=== PATIENT | male | born 1970 | race Caucasian/White ===

== ENCOUNTER 2019-06-17 14:36 | Emergency (ER) | payer OTHER ==
[2019-06-17 14:41] VITALS: TEMP 98.1
[2019-06-17] MEDS ORDERED: SODIUM CHLORIDE 0.9% 1,000 ML IV STA (14:43)
[2019-06-17 15:08] VITALS: RESP 16
[2019-06-17 15:10] LABS: Basophils # (A) 0.1 k/uL (0-0.2); Basophils % (A) 1 %; Eosinophils # (A) 0.1 k/uL (0-0.7); Eosinophils % (A) 1 %; HCT 45.8 % (39.0-53.0); HGB 15.6 gm/dL (13.0-17.5); Lymphocytes # (A) 2.4 k/uL (1.0-4.8); Lymphocytes % (A) 25 %; MCH 30.9 pg (25.0-35.0); Mean Platelet Volume 7.1; Monocytes # (A) 0.6 k/uL (0-1.0); Monocytes % (A) 6 %; Neutrophils # (A) 6.2 k/uL (1.3-7.7); Neutrophils % (A) 65 %; Platelet Count 276 k/uL (150-450); RBC 5.04 m/uL (4.30-5.90); RDW 14.7 % (11.5-15.5); WBC 9.6 k/uL (3.8-10.6)
[2019-06-17 15:20] LABS: ALT 48 U/L (21-72); AST 36 U/L (17-59); African American GFR (CKD) >90 (>60 ml/min/1.73 sqM); Albumin 4.6 g/dL (3.5-5.0); Alkaline Phosphatase 78 U/L (38-126); Anion Gap 13 mmol/L; Blood Urea Nitrogen 12 mg/dL (9-20); Calcium 10.1 mg/dL (8.4-10.2); Carbon Dioxide 24 mmol/L (22-30); Chloride 102 mmol/L (98-107); Glucose 189 mg/dL (74-99); Magnesium 1.9 mg/dL (1.6-2.3); Potassium 4.2 mmol/L (3.5-5.1); Sodium 139 mmol/L (137-145); Total Bilirubin 0.5 mg/dL (0.2-1.3); Total Protein 7.5 g/dL (6.3-8.2)
--- NOTE | 2019-06-17 15:34 | ED ---
General Adult HPI - General Chief complaint: Dizziness Stated complaint: Poss Overdose Time Seen by Provider: 06/17/19 14:43 Source: patient, RN notes reviewed Mode of arrival: wheelchair Limitations: no limitations - History of Present Illness Initial comments: 48-year-old male presents emergency Department with son for medication ingestion. Patient reportedly has been over taking his medications in which he states that he did over take them because he could not sleep. He states last 24-36 hours he did have increased muscle spasms in which she normally takes Flexeril for 1 tab nightly states that he's been taking 2-3 of them and also states he normally takes one Ambien pill night but states he is taken 5 or 6 last 2 days. His last pill was approximately 2 hours prior arrival. He states that he feels very drowsy since states that he is acting kind of confused at this time but has no focal deficits. Patient states that this was intentional to help him sleep but was not intentional to harm himself he denies feeling suicidal or homicidal. He denies any history of drug abuse. Patient's son states that there is a large amount of stress in the household and he has been recently going to therapy. Patient denies any current chest pain, thoracic back pain, headache, dizziness, neck pain. Patient has no complaints of abdominal pain including nausea and diarrhea constipation - Related Data Home Medications Medication Instructions Recorded Confirmed Cyclobenzaprine [Flexeril] 10 mg PO HS 06/17/19 06/17/19 Omeprazole [PriLOSEC] 40 mg PO DAILY 06/17/19 06/17/19 Zolpidem [Ambien] 10 mg PO HS 06/17/19 06/17/19 Allergies Allergy/AdvReac Type Severity Reaction Status Date / Time azithromycin Allergy Rash/Hives Verified 06/17/19 15:25 [From Zithromax Z-Gato] Review of Systems ROS Statement: Those systems with pertinent positive or pertinent negative responses have been documented in the HPI. ROS Other: All systems not noted in ROS Statement are negative. Past Medical History Past Medical History: Pneumonia, Sleep Apnea/CPAP/BIPAP Additional Past Medical History / Comment(s): JOSEY with bipap, sinus problems, bronchitis-just got over, History of Any Multi-Drug Resistant Organisms: None Reported Additional Past Surgical History / Comment(s): right foot fracture with surgery Past Anesthesia/Blood Transfusion Reactions: No Reported Reaction Past Psychological History: ADD/ADHD Smoking Status: Never smoker Past Alcohol Use History: None Reported Past Drug Use History: None Reported - Past Family History Father Family Medical History: No Reported History Additional Family Medical History / Comment(s): Father is healthy and almost 70 yrs old. Mother Family Medical History: CVA/TIA Additional Family Medical History / Comment(s): Mother of a CVA at the age of 45yrs. General Exam Limitations: no limitations General appearance: alert, in no apparent distress Head exam: Present: atraumatic, normocephalic, normal inspection Eye exam: Present: normal appearance, PERRL, EOMI. Absent: scleral icterus, conjunctival injection, periorbital swelling ENT exam: Present: normal exam, normal oropharynx, mucous membranes moist, TM's normal bilaterally Neck exam: Present: normal inspection, full ROM. Absent: tenderness, meningismus, lymphadenopathy Respiratory exam: Present: normal lung sounds bilaterally. Absent: respiratory distress, wheezes, rales, rhonchi, stridor Cardiovascular Exam: Present: normal rhythm, tachycardia, normal heart sounds. Absent: systolic murmur, diastolic murmur, rubs, gallop, clicks GI/Abdominal exam: Present: soft, normal bowel sounds. Absent: distended, tenderness, guarding, rebound, rigid Extremities exam: Present: normal inspection, full ROM, normal capillary refill. Absent: tenderness, pedal edema, joint swelling, calf tenderness Back exam: Present: full ROM. Absent: tenderness Neurological exam: Present: alert, CN II-XII intact, reflexes normal. Absent: oriented X3 (Orientated x2 ), motor sensory deficit Skin exam: Present: warm, dry, intact, normal color. Absent: rash Course Vital Signs 06/17/19 06/17/19 06/17/19 14:38 15:07 17:08 Temperature 98.1 F Pulse Rate 107 H 112 H 96 Respiratory 18 16 16 Rate Blood Pressure 162/87 150/102 141/130 O2 Sat by Pulse 95 99 99 Oximetry EKG Findings - EKG Comments: EKG Findings:: 1553 normal sinus rhythm rate of 93 [place] 134 QRS 150 QT/QTC 460right bundle to the left anterior fascicular block Medical Decision Making - Medical Decision Making 48-year-old male presented for medication overuse. Patient's having difficulty sleeping at home was ordered using his medications. Patient had complete workup which is negative at this time. Patient was evaluated by EPS. They did not recommend inpatient treatment. Patient we discharged with family who LOC patient's medications. Patient is not suicidal or homicidal. - Lab Data Result diagrams: 06/17/19 14:55 06/17/19 14:55 Lab Results 06/17/19 06/17/19 06/17/19 Range/Units 14:55 14:55 14:55 WBC 9.6 (3.8-10.6) k/uL RBC 5.04 (4.30-5.90) m/uL Hgb 15.6 (13.0-17.5) gm/dL Hct 45.8 (39.0-53.0) % MCV 91.0 (80.0-100.0) fL MCH 30.9 (25.0-35.0) pg MCHC 34.0 (31.0-37.0) g/dL RDW 14.7 (11.5-15.5) % Plt Count 276 (150-450) k/uL Neutrophils % 65 % Lymphocytes % 25 % Monocytes % 6 % Eosinophils % 1 % Basophils % 1 % Neutrophils # 6.2 (1.3-7.7) k/uL Lymphocytes # 2.4 (1.0-4.8) k/uL Monocytes # 0.6 (0-1.0) k/uL Eosinophils # 0.1 (0-0.7) k/uL Basophils # 0.1 (0-0.2) k/uL Sodium 139 (137-145) mmol/L Potassium 4.2 (3.5-5.1) mmol/L Chloride 102 (98-107) mmol/L Carbon Dioxide 24 (22-30) mmol/L Anion Gap 13 mmol/L BUN 12 (9-20) mg/dL Creatinine 0.68 (0.66-1.25) mg/dL Est GFR (CKD-EPI)AfAm >90 (>60 ml/min/1.73 sqM) Est GFR (CKD-EPI)NonAf >90 (>60 ml/min/1.73 sqM) Glucose 189 H (74-99) mg/dL Calcium 10.1 (8.4-10.2) mg/dL Magnesium 1.9 (1.6-2.3) mg/dL Total Bilirubin 0.5 (0.2-1.3) mg/dL AST 36 (17-59) U/L ALT 48 (21-72) U/L Alkaline Phosphatase 78 (38-126) U/L Troponin I <0.012 (0.000-0.034) ng/mL Total Protein 7.5 (6.3-8.2) g/dL Albumin 4.6 (3.5-5.0) g/dL Lipase 75 (23-300) U/L Urine Color Urine Appearance (Clear) Urine pH (5.0-8.0) Ur Specific [place] (1.001-1.035) Urine Protein (Negative) Urine Glucose (UA) (Negative) Urine Ketones (Negative) Urine Blood (Negative) Urine Nitrite (Negative) Urine Bilirubin (Negative) Urine Urobilinogen (<2.0) mg/dL Ur Leukocyte Esterase (Negative) Urine Opiates Screen (NotDetected) Ur Oxycodone Screen (NotDetected) Urine Methadone Screen (NotDetected) Ur Propoxyphene Screen (NotDetected) Ur Barbiturates Screen (NotDetected) U Tricyclic Antidepress (NotDetected) Ur Phencyclidine Scrn (NotDetected) Ur Amphetamines Screen (NotDetected) U Methamphetamines Scrn (NotDetected) U Benzodiazepines Scrn (NotDetected) Urine Cocaine Screen (NotDetected) U Marijuana (THC) Screen (NotDetected) 06/17/19 Range/Units 16:25 WBC (3.8-10.6) k/uL RBC (4.30-5.90) m/uL Hgb (13.0-17.5) gm/dL Hct (39.0-53.0) % MCV (80.0-100.0) fL MCH (25.0-35.0) pg MCHC (31.0-37.0) g/dL RDW (11.5-15.5) % Plt Count (150-450) k/uL Neutrophils % % Lymphocytes % % Monocytes % % Eosinophils % % Basophils % % Neutrophils # (1.3-7.7) k/uL Lymphocytes # (1.0-4.8) k/uL Monocytes # (0-1.0) k/uL Eosinophils # (0-0.7) k/uL Basophils # (0-0.2) k/uL Sodium (137-145) mmol/L Potassium (3.5-5.1) mmol/L Chloride (98-107) mmol/L Carbon Dioxide (22-30) mmol/L Anion Gap mmol/L BUN (9-20) mg/dL Creatinine (0.66-1.25) mg/dL Est GFR (CKD-EPI)AfAm (>60 ml/min/1.73 sqM) Est GFR (CKD-EPI)NonAf (>60 ml/min/1.73 sqM) Glucose (74-99) mg/dL Calcium (8.4-10.2) mg/dL Magnesium (1.6-2.3) mg/dL Total Bilirubin (0.2-1.3) mg/dL AST (17-59) U/L ALT (21-72) U/L Alkaline Phosphatase (38-126) U/L Troponin I (0.000-0.034) ng/mL Total Protein (6.3-8.2) g/dL Albumin (3.5-5.0) g/dL Lipase (23-300) U/L Urine Color Light Yellow Urine Appearance Clear (Clear) Urine pH 6.5 (5.0-8.0) Ur Specific [place] 1.003 (1.001-1.035) Urine Protein Negative (Negative) Urine Glucose (UA) Negative (Negative) Urine Ketones Negative (Negative) Urine Blood Negative (Negative) Urine Nitrite Negative (Negative) Urine Bilirubin Negative (Negative) Urine Urobilinogen <2.0 (<2.0) mg/dL Ur Leukocyte Esterase Negative (Negative) Urine Opiates Screen Not Detected (NotDetected) Ur Oxycodone Screen Not Detected (NotDetected) Urine Methadone Screen Not Detected (NotDetected) Ur Propoxyphene Screen Not Detected (NotDetected) Ur Barbiturates Screen Not Detected (NotDetected) U Tricyclic Antidepress Not Detected (NotDetected) Ur Phencyclidine Scrn Not Detected (NotDetected) Ur Amphetamines Screen Not Detected (NotDetected) U Methamphetamines Scrn Not Detected (NotDetected) U Benzodiazepines Scrn Not Detected (NotDetected) Urine Cocaine Screen Not Detected (NotDetected) U Marijuana (THC) Screen Not Detected (NotDetected) Disposition Clinical Impression: Overuse of medication, Insomnia Disposition: HOME SELF-CARE Condition: Stable Instructions (If sedation given, give patient instructions): Insomnia (ED) Additional Instructions: Please return to the Emergency Department if symptoms worsen or any other concerns. Is patient prescribed a controlled substance at d/c from ED?: No Referrals: Kiersten Bernard DO [Primary Care Provider] - 1-2 days Time of Disposition: 19:04
--- NOTE | 2019-06-17 16:28 | CT ---
EXAMINATION TYPE: CT brain wo con DATE OF EXAM: 06/17/2019 COMPARISON: 07/10/2016 HISTORY: 48-year-old male Dizziness and weakness after accidental overdose. TECHNIQUE: Examination was done in axial plane without intravenous contrast. Coronal and sagittal r econstructions performed. CT DLP: 1149.4 mGycm Automated exposure control for dose reduction was used. FINDINGS: There is no evidence of acute intracranial hemorrhage, acute ischemic changes, mass, mass-effect, or extra-axial fluid collection. There is no effacement of cerebral sulci or basal subarachnoid cister ns. There is no hydrocephalus. There is no midline shift. Jose-white matter distinction is preserv ed. Mild bifrontal cortical volume loss. Partially empty sella. There is trace mucosal thickening ethmoid air cells. Mastoid air cells are pneumatized. Orbits and globes appear intact. IMPRESSION: No acute intracranial abnormality seen.
[2019-06-17 16:41] LABS: Appearance,Urine Clear (Clear); Bilirubin,Urine Negative (Negative); Blood,Urine Negative (Negative); Color,Urine Light Yellow; Glucose,Urine (UA) Negative (Negative); Ketones,Urine Negative (Negative); Leukocyte Esterase,Urine Negative (Negative); Nitrite,Urine Negative (Negative); PH, Urine 6.5 (5.0-8.0); Protein,Urine Negative (Negative); Specific Gravity,Urine 1.003 (1.001-1.035); Urobilinogen,Urine <2.0 mg/dL (<2.0)
[2019-06-17 16:52] LABS: Amphetamine Screen,Urine Not Detected (NotDetected); Barbiturate Screen,Urine Not Detected (NotDetected); Benzodiazepines Screen,Urine Not Detected (NotDetected); Cocaine Screen,Urine Not Detected (NotDetected); Methadone Screen, Urine Not Detected (NotDetected); Opiate Screen,Urine Not Detected (NotDetected); Oxycodone Screen, Urine Not Detected (NotDetected); Phencyclidine Screen,Urine Not Detected (NotDetected); Tricyclic Antidepressant,Urine Not Detected (NotDetected); Urn Cannabinoid Scrn Not Detected (NotDetected)
[2019-06-17 19:18] VITALS: BP 141/98; PULSE 98
== END 2019-06-17 19:07 | disposition home or self-care (01) ==
LOC: EC 14:36
DX: T42.6X1A Poisoning by other antiepileptic and sedative-hypnotic drugs, accidental (unintentional), initial encounter (principal); R42 Dizziness and giddiness; G47.00 Insomnia, unspecified; G47.33 Obstructive sleep apnea (adult) (pediatric); Z79.899 Other long term (current) drug therapy; Z88.1 Allergy status to other antibiotic agents; Z99.89 Dependence on other enabling machines and devices
CPT/HCPCS: 36415; 70450; 80053; 80306; 81003; 82075; 83690; 83735; 84484; 85025; 93005; 96360; 99284

== ENCOUNTER 2020-12-21 08:15 | Day surgery (SDC) | payer BC ==
[2020-12-15 14:57] VITALS: BMI 51.2
[~2020-12-21 08:15] MED LIST: LACTATED RINGERS 1,000 ML IV SCH; LIDOCAINE 1% (10MG/ML) FOR IV START INTRADERMA PRN
[2020-12-21 08:51] VITALS: RESP 16; TEMP 97
[2020-12-21] MEDS ORDERED: LIDOCAINE 1% INJ 10MG/ML (20 ML MDV) ONE (08:55)
[2020-12-21] MEDS ORDERED: PROPOFOL 10 MG/ML 20 ML VIAL IV ONE (08:55)
--- NOTE | 2020-12-21 08:59 | P.GSHP ---
History of Present Illness H&P Date: 12/21/20 Chief Complaint: Colon cancer screening Patient here today for colonoscopy. He has not had 1 previously. Patient with history of multiple loose stools daily that is normal for him. No rectal bleeding or melena. No family history of colon cancer or inflammatory bowel disease. Past Medical History Past Medical History: Pneumonia, Sleep Apnea/CPAP/BIPAP Additional Past Medical History / Comment(s): JOSEY with bipap, sinus problems, bronchitis. change in bowel pattern History of Any Multi-Drug Resistant Organisms: None Reported Past Surgical History: Orthopedic Surgery Additional Past Surgical History / Comment(s): right foot fracture with surgery. vasectomy Past Anesthesia/Blood Transfusion Reactions: No Reported Reaction, Motion Sickness Smoking Status: Never smoker - Past Family History Father Family Medical History: No Reported History Additional Family Medical History / Comment(s): Father is healthy and almost 70 yrs old. Mother Family Medical History: CVA/TIA Additional Family Medical History / Comment(s): Mother of a CVA at the age of 45yrs. Medications and Allergies Home Medications Medication Instructions Recorded Confirmed Type Acetaminophen [Tylenol] 325 mg PO DAILY PRN 12/15/20 12/21/20 History Butler Seal Root 1 tab PO DAILY 12/15/20 12/15/20 History Multivitamins, Thera [Multivitamin 1 tab PO DAILY 12/15/20 12/15/20 History (formulary)] Allergies Allergy/AdvReac Type Severity Reaction Status Date / Time azithromycin Allergy Rash/Hives Verified 12/21/20 08:38 [From Zithromax Z-Gato] Surgical - Exam Vital Signs Temp Pulse Resp BP Pulse Ox 97 F L 78 16 152/80 96 12/21/20 08:39 12/21/20 08:39 12/21/20 08:39 12/21/20 08:39 12/21/20 08:39 Physical exam: General: Well-developed, well-nourished HEENT: Normocephalic, sclerae nonicteric Abdomen: Nontender, nondistended Extremities: No edema Neuro: Alert and oriented Assessment and Plan (1) Colon cancer screening Narrative/Plan: Will proceed with colonoscopy Current Visit: Yes Status: Acute Code(s): Z12.11 - ENCOUNTER FOR SCREENING FOR MALIGNANT NEOPLASM OF COLON SNOMED Code(s): 460755084
--- NOTE | 2020-12-21 09:16 | P.PCN ---
Date of Procedure: 12/21/20 Procedure(s) Performed: PREOPERATIVE DIAGNOSIS: Colon cancer screening POSTOPERATIVE DIAGNOSIS: Small rectal polyp PROCEDURE: Colonoscopy with snare polypectomy ANESTHESIA: MAC SURGEON: Silas Vera M.D. SPECIMENS: Rectal polyp ENDOSCOPIC PROCEDURE: The patient was placed on the endoscopy table in the left decubitus position. The Olympus colonoscope was inserted into the anus and passed under direct visualization to the base of the cecum. The appendiceal orifice was visualized. From that point the scope was slowly withdrawn inspecting all surfaces carefully. There were no neoplastic inflammatory or polypoid lesions throughout the cecum, ascending, transverse, descending, and sigmoid colon. In the rectum a small polyp was seen and removed using the snare with cautery technique. The remainder of the rectum was normal. There was no visible diverticulosis. Digital rectal examination was normal. The patient was taken to the recovery room in stable condition per anesthesia guidelines. RECOMMENDATIONS: Await biopsy results. Resume diet.
[2020-12-21 09:42] VITALS: BP 151/92; PULSE 67
== END 2020-12-21 09:56 | disposition home or self-care (01) ==
LOC: ORWHC2ENDO 08:15
PROVIDERS: ATTEND Surgery
DX: Z12.11 Encounter for screening for malignant neoplasm of colon (principal); K62.1 Rectal polyp; G47.33 Obstructive sleep apnea (adult) (pediatric); Z99.89 Dependence on other enabling machines and devices; Z87.01 Personal history of pneumonia (recurrent); Z87.09 Personal history of other diseases of the respiratory system; Z98.52 Vasectomy status; Z98.890 Other specified postprocedural states; Z82.3 Family history of stroke; Z88.1 Allergy status to other antibiotic agents
CPT/HCPCS: 88305; 45385; J2001; J2704

== ENCOUNTER 2024-02-10 09:20 | Inpatient (IN) | payer BC, OTHER ==
--- NOTE | 2024-02-10 09:49 | ED ---
General Adult HPI - General Chief complaint: Neuro Symptoms/Deficit Stated complaint: Left side weakness Time Seen by Provider: 02/10/24 09:41 Source: patient, family, RN notes reviewed Limitations: no limitations - History of Present Illness Initial comments: Patient is a 53-year-old male presenting to the emergency department with concern for left-sided weakness. Patient noticed symptoms when he woke up around 830 this morning. Patient was awake at 2 AM and walking around without any symptoms. Last known well was 2 AM. No speech problems or confusion. Patient this morning is having difficulty with walking. Patient also noticed left arm feels cold and weak and heavy. - Related Data Home Medications Medication Instructions Recorded Confirmed Citalopram Hydrobromide [CeleXA] 40 mg PO DAILY 02/10/24 02/10/24 Losartan Potassium [Cozaar] 100 mg PO DAILY 02/10/24 02/10/24 lamoTRIgine [LaMICtal] 50 mg PO HS 02/10/24 02/10/24 sitaGLIPtin [Januvia] 100 mg PO HS 02/10/24 02/10/24 Allergies Allergy/AdvReac Type Severity Reaction Status Date / Time azithromycin Allergy Rash/Hives Verified 02/10/24 11:08 [From Zithromax Z-Gato] Review of Systems ROS Statement: Those systems with pertinent positive or pertinent negative responses have been documented in the HPI. ROS Other: All systems not noted in ROS Statement are negative. Constitutional: Denies: fever Eyes: Denies: eye pain ENT: Denies: ear pain Respiratory: Denies: cough Cardiovascular: Denies: chest pain Endocrine: Denies: fatigue Gastrointestinal: Denies: abdominal pain Neurological: Reports: as per HPI, weakness, paresthesias, abnormal gait. Denies: headache Past Medical History Past Medical History: Hypertension, Pneumonia, Sleep Apnea/CPAP/BIPAP Additional Past Medical History / Comment(s): JOSEY with bipap, sinus problems, bronchitis. change in bowel pattern History of Any Multi-Drug Resistant Organisms: None Reported Past Surgical History: Orthopedic Surgery Additional Past Surgical History / Comment(s): right foot fracture with surgery. vasectomy Past Anesthesia/Blood Transfusion Reactions: No Reported Reaction, Motion Sickness Past Psychological History: ADD/ADHD Smoking Status: Never smoker Past Alcohol Use History: None Reported Past Drug Use History: None Reported - Past Family History Father Family Medical History: No Reported History Additional Family Medical History / Comment(s): Father is healthy and almost 70 yrs old. Mother Family Medical History: CVA/TIA Additional Family Medical History / Comment(s): Mother of a CVA at the age of 45yrs. General Exam Limitations: no limitations General appearance: alert, in no apparent distress Head exam: Present: normocephalic Eye exam: Present: normal appearance, PERRL, EOMI ENT exam: Present: normal exam Neck exam: Present: normal inspection Respiratory exam: Present: normal lung sounds bilaterally Cardiovascular Exam: Present: regular rate, normal rhythm GI/Abdominal exam: Present: soft. Absent: tenderness Extremities exam: Present: normal inspection Neurological exam: Present: alert, oriented X3, abnormal gait (difficulty transferring to the bed from wheelchair) Expanded Neurological exam: Present: protecting the airway Patient oriented to: Present: person, place, time Speech: Present: fluid speech Cranial nerves: EOM's Intact: Normal, Facial Sensation: Normal Sensory exam: Upper Extremity Light Touch: Normal, Lower Extremity Light Touch: Normal Motor strength exam: RUE: 5, LUE: 3, RLE: 5, LLE: 3 Eye Response: (4) open spontaneously Motor Response: (6) obeys commands Verbal Response: (5) oriented Psychiatric exam: Present: normal affect, normal mood Skin exam: Present: normal color Course Vital Signs 02/10/24 09:38 Temperature 98 F Pulse Rate 72 Respiratory 18 Rate Blood Pressure 159/108 O2 Sat by Pulse 96 Oximetry - Reevaluation(s) Reevaluation #1: 02/10/24 10:01 Case was discussed with Dr. Miranda who agrees patient is not a candidate for tPA secondary to last known well greater than 4.5 hours. He did review the CT EKG Findings - EKG Results: EKG: interpreted by ERMD (Left axis. Right bundle branch block. QTc 488.), sinus rhythm, normal ST/T Medical Decision Making - Medical Decision Making Was pt. sent in by a medical professional or institution (, PA, ARCHITECTURE INTERN, urgent care, hospital, or long term...) When possible be specific @ -No Did you speak to anyone other than the patient for history (EMS, parent, family, police, friend...)? What history was obtained from this source @ -No Did you review nursing and triage notes (agree or disagree)? Why? @ -I reviewed and agree with nursing and triage notes Were old charts reviewed (outside hosp., previous admission, EMS record, old EKG, old radiological studies, urgent care reports/EKG's, long term records)? Report findings @ -No old charts were reviewed Differential Diagnosis (chest pain, altered mental status, abdominal pain women, abdominal pain men, vaginal bleeding, weakness, fever, dyspnea, syncope, headache, dizziness, GI bleed, back pain, seizure, CVA, palpatations, mental health, musculoskeletal)? @ -Differential Weakness: Hypoglycemia, shock, sepsis, hyponatremia, anemia, infection, [place], ETOH, adverse medicine reaction, overdose, stroke, this is not meant to be an all-inclusive list. EKG interpreted by me (3pts min.). @ -As above X-rays interpreted by me (1pt min.). @ -Chest x-ray shows no acute process CT interpreted by me (1pt min.). @ -CT scan of the brain without obvious acute abnormality U/S interpreted by me (1pt. min.). @ -None done What testing was considered but not performed or refused? (CT, X-rays, U/S, labs)? Why? @ -None What meds were considered but not given or refused? Why? @ -Plavix and aspirin will be ordered Did you discuss the management of the patient with other professionals (professionals i.e. , PA, ARCHITECTURE INTERN, lab, RT, psych nurse, social group worker, anchor tacker, teacher, command center officer, therapeutic case manager)? Give summary @ -Case discussed twice with Dr. Miranda who did review the films as well. Case also discussed with Dr. Hylton who will admit covering Dr. Rico. Was smoking cessation discussed for >3mins.? @ -No Was critical care preformed (if so, how long)? @ -34 minutes critical care to Were there social determinants of health that impacted care today? How? (Homelessness, low income, unemployed, alcoholism, drug addiction, transportation, low edu. Level, literacy, decrease access to med. care, shelter, rehab)? @ -No Was there de-escalation of care discussed even if they declined (Discuss DNR or withdrawal of care, Hospice)? DNR status @ -No What co-morbidities impacted this encounter? (DM, HTN, Smoking, COPD, CAD, Cancer, CVA, ARF, Chemo, Hep., AIDS, mental health diagnosis, sleep apnea, morbid obesity)? @ -None Was patient admitted / discharged? Hospital course, mention meds given and route, prescriptions, significant lab abnormalities, going to OR and other pertinent info. @ -Patient presents with stroke symptoms. Patient is not a tPA candidate secondary to onset greater than 4.5 hours. Risks felt to outweigh benefits. Patient will be admitted with neurology consult. Patient orders written. Undiagnosed new problem with uncertain prognosis? @ -No Drug Therapy requiring intensive monitoring for toxicity (Heparin, Nitro, Insulin, Cardizem)? @ -No Were any procedures done? @ -No Diagnosis/symptom? @ -CVA Acute, or Chronic, or Acute on Chronic? @ -Acute Uncomplicated (without systemic symptoms) or Complicated (systemic symptoms)? @ -Default Side effects of treatment? @ -No Exacerbation, Progression, or Severe Exacerbation? @ -No Poses a threat to life or bodily function? How? (Chest pain, [place], [place], pneumonia, PE, COPD, DKA, ARF, appy, cholecystitis, CVA, Diverticulitis, Homicidal, Suicidal, threat to staff... and all critical care pts) @ -Threat to limb function and brain function - Lab Data Result diagrams: 02/10/24 09:50 02/10/24 09:50 Lab Results 02/10/24 02/10/24 02/10/24 Range/Units 09:50 09:50 09:50 WBC 9.5 (3.8-10.6) k/uL RBC 5.10 (4.30-5.90) m/uL Hgb 15.4 (13.0-17.5) gm/dL Hct 46.5 (39.0-53.0) % MCV 91.3 (80.0-100.0) fL MCH 30.2 (25.0-35.0) pg MCHC 33.1 (31.0-37.0) g/dL RDW 13.5 (11.5-15.5) % Plt Count 261 (150-450) k/uL MPV 7.9 Neutrophils % 68 % Lymphocytes % 20 % Monocytes % 7 % Eosinophils % 2 % Basophils % 1 % Neutrophils # 6.5 (1.3-7.7) k/uL Lymphocytes # 1.9 (1.0-4.8) k/uL Monocytes # 0.7 (0-1.0) k/uL Eosinophils # 0.2 (0-0.7) k/uL Basophils # 0.1 (0-0.2) k/uL PT 10.7 (10.0-12.5) sec INR 1.0 (<1.2) APTT 24.0 (22.0-30.0) sec Sodium 139 (137-145) mmol/L Potassium 4.6 (3.5-5.1) mmol/L Chloride 106 (98-107) mmol/L Carbon Dioxide 26 (22-30) mmol/L Anion Gap 7 mmol/L BUN 18 (9-20) mg/dL Creatinine 0.65 L (0.66-1.25) mg/dL Est GFR (CKD-EPI)AfAm >90 (>60 ml/min/1.73 sqM) Est GFR (CKD-EPI)NonAf >90 (>60 ml/min/1.73 sqM) Glucose 177 H (74-99) mg/dL Calcium 9.3 (8.4-10.2) mg/dL Total Bilirubin 0.6 (0.2-1.3) mg/dL AST 24 (17-59) U/L ALT 36 (4-49) U/L Alkaline Phosphatase 67 (38-126) U/L Creatine Kinase 160 (55-170) U/L Total Protein 7.1 (6.3-8.2) g/dL Albumin 4.4 (3.5-5.0) g/dL Critical Care Time Critical Care Time: Yes Disposition Clinical Impression: Cerebrovascular accident (CVA) Disposition: ADMITTED IP TO THIS [facility] Condition: Serious Is patient prescribed a controlled substance at d/c from ED?: No Referrals: Ruba Rico DO [Primary Care Provider] - 1-2 days Time of Disposition: 11:48
[2024-02-10 10:02] LABS: Basophils # (A) 0.1 k/uL (0-0.2); Basophils % (A) 1 %; Eosinophils # (A) 0.2 k/uL (0-0.7); Eosinophils % (A) 2 %; HCT 46.5 % (39.0-53.0); HGB 15.4 gm/dL (13.0-17.5); Lymphocytes # (A) 1.9 k/uL (1.0-4.8); Lymphocytes % (A) 20 %; MCH 30.2 pg (25.0-35.0); MCHC 33.1 g/dL (31.0-37.0); MCV 91.3 fL (80.0-100.0); Mean Platelet Volume 7.9; Monocytes # (A) 0.7 k/uL (0-1.0); Monocytes % (A) 7 %; Neutrophils # (A) 6.5 k/uL (1.3-7.7); Neutrophils % (A) 68 %; Platelet Count 261 k/uL (150-450); RDW 13.5 % (11.5-15.5); WBC 9.5 k/uL (3.8-10.6)
[2024-02-10 10:11] LABS: Prothrombin Time 10.7 sec (10.0-12.5)
--- NOTE | 2024-02-10 10:12 | CT ---
EXAMINATION TYPE: CT brain wo con CT DLP: 1224.4 mGycm, Automated exposure control for dose reduction was used. DATE OF EXAM: 02/10/2024 10:01 AM COMPARISON: CT head 06/17/2019. MRI brain 07/10/2016. CLINICAL INDICATION:Male, 53 years old with history of Neuro deficit, acute, stroke suspected, Neuro deficit, acute, stroke suspected TECHNIQUE: Brain: Axial CT images of the brain were obtained with coronal and sagittal reformats created and rev iewed. Contrast used: None. Oral contrast used: None. FINDINGS: Extra-axial spaces: No abnormal extra-axial fluid collections. Basilar cisterns are patent. Ventricular system: Within normal limits. Cerebral parenchyma: No increased attenuation to suggest acute intraparenchymal hemorrhage. The gra y-white matter interface appears maintained. Mild bifrontal cortical volume loss redemonstrated. Wh ite matter unremarkable by CT. Cerebellum: No acute abnormality. Mass effect: No evidence of mass effect or midline shift. Intracranial vasculature: Unremarkable Soft tissues: No acute or concerning abnormality. Visualized orbits: Orbital contents appear grossly intact. Calvarium/osseous structures: No evidence of calvarial fracture. Paranasal sinuses and mastoid air cells: Clear. MRI is more sensitive for detecting acute processes such as infarct, and may be considered if clinica lly warranted. IMPRESSION: Overall stable intracranial findings. No CT evidence of an acute intracranial abnormality.
[2024-02-10 10:30] LABS: ALT 36 U/L (4-49); AST 24 U/L (17-59); African American GFR (CKD) >90 (>60 ml/min/1.73 sqM); Albumin 4.4 g/dL (3.5-5.0); Alkaline Phosphatase 67 U/L (38-126); Anion Gap 7 mmol/L; Blood Urea Nitrogen 18 mg/dL (9-20); Calcium 9.3 mg/dL (8.4-10.2); Carbon Dioxide 26 mmol/L (22-30); Chloride 106 mmol/L (98-107); Creatine Kinase 160 U/L (55-170); Glucose 177 mg/dL (74-99); Non-African American GFR(CKD) >90 (>60 ml/min/1.73 sqM); Potassium 4.6 mmol/L (3.5-5.1); Sodium 139 mmol/L (137-145); Total Bilirubin 0.6 mg/dL (0.2-1.3); Total Protein 7.1 g/dL (6.3-8.2)
--- NOTE | 2024-02-10 10:49 | CT ---
EXAMINATION TYPE: CT angio head neck DATE OF EXAM: 02/10/2024 10:16 AM COMPARISON: Correlation same day CT head. Ultrasound carotid 07/10/2016. CTA head neck 07/10/2016 CLINICAL INDICATION:Male, 53 years old with history of Neuro deficit, acute, stroke suspected; PHH, N euro deficit, acute, stroke suspected. unsteady gate, left side paralysis. flu like symptoms prior to this TECHNIQUE: Axially acquired helical CT angiogram of the head and neck was obtained with contrast. Axi al images are supplemented with 3D reconstructions [facility] NAS[facility]ET criteria used. Contrast used: 65ml mL of Isovue 370 with IV Contrast, Oral contrast used: None. CT DLP: 1424.8 mGycm, Automated exposure control for dose reduction was used. FINDINGS: Exam sensitivity is reduced by artifact from body habitus and suboptimal contrast bolus timing result ing in poor arterial opacification. Also correlate for cardiac function. CTA Neck: Three-vessel aortic arch is shown. No dissection. Origins of the branch vessels are patent. Bilateral common carotid arteries appear to be patent proximally. Continuing distally both are faintl y opacified but judged to be grossly patent. Bifurcations appear patent without significant stenosis seen definitively. There is little opacification of the vessels entering the skull base. The vertebral arteries are similarly faintly visualized with no gross abnormalities detected. No acute or concerning soft tissue abnormality detected in the neck. Mild/moderate diffuse osseous degenerative changes without clear evidence of acute bony pathology. Th e included lung apices are clear. CTA Head: Study is limited by poor arterial opacification. In the anterior circulation the ICAs are faintly opacified, without gross evidence of occlusion or cr itical stenosis. Right MCA appears to be patent, as is the MARY KAY with cross fill across the anterior co mmunicating artery supplying both ACAs. The left A1 segment of MARY KAY appears hypoplastic. Left MCA appe ars grossly patent. No definite posterior communicating arteries can be seen. In the posterior circulation, the vertebral arteries appear to be patent. Basilar artery is patent. A t the bifurcation, no sizable aneurysm can be seen. Visualized proximal kit planner appear to be patent. No convincing evidence of large vessel occlusion, significant stenosis, or sizable intracranial aneur ysm in the limits of CTA. Dural venous sinuses show grossly normal enhancement without suggestion of thrombosis. For further details, please refer to same day CT head report. IMPRESSION: 1. Limited study with suboptimal arterial contrast opacification. 2. CTA neck appears patent without clear evidence of dissection or significant stenosis of the carot id or vertebral arteries. 3. CTA head appears patent without clear evidence of large vessel occlusion, significant stenosis, o r sizable aneurysm.
--- NOTE | 2024-02-10 10:51 | XR ---
EXAMINATION TYPE: XR chest 2V DATE OF EXAM: 02/10/2024 10:21 AM CLINICAL INDICATION:Male, 53 years old with history of altered mental status; COMPARISON: Chest radiographs from 07/10/2016 TECHNIQUE: XR chest 2V Frontal and lateral views of the chest. FINDINGS: Lungs/Pleura: There is no evidence of pleural effusion, focal consolidation, or pneumothorax. Pulmonary vascularity: Unremarkable. Heart/mediastinum: Cardiomediastinal silhouette is unremarkable. Musculoskeletal: No acute osseous pathology. IMPRESSION: No acute cardiopulmonary disease/process.
[2024-02-10] MEDS: CLOPIDOGREL 75 MG TAB PO STA (12:38)
[2024-02-10] MEDS: SODIUM CHLORIDE 0.9% 1,000 ML IV SCH (12:39)
[2024-02-10] MEDS: ASPIRIN 325 MG TAB PO STA (12:40)
--- NOTE | 2024-02-10 13:26 | P.CNNES ---
History of Present Illness Consult date: 02/10/24 Requesting physician: Ramone Worthington Reason for Consult: cva History of Present Illness: this is a 53-year-old gentleman who presented emergency department because of left-sided weakness. Patient is accompanied with his and sister. It seems last normal was around 2 AM today and then when he woke up today around 9a.m. he had entire left-sided weakness and feels he is having some numbness over the face and left upper extremity. Patient denies of any neck pain. He denies any history of stroke. Denies being on any antiplatelet. Denies any history of atrial fib wrist or flutter. He stated that this Sunday he had a headache over the parietal region bilaterally and was 8/10 lasting until the next day without any radiation. He did feel nauseous but no vomiting. Denies any photophobia or phonophobia. He slept throughout the day on Sunday. He also had some chills. Denies any fevers or sick contacts. He was doing well yesterday and was working on the yard. also he did not have any headache today.Denies any sick contacts. Denies any history of stroke. He does have underlying history of anxiety/depression is on Lamictal. He denies any stress but his 's feels may be there is some stress with his children's issue. patient has underlying diabetes, hypertension sleep apnea and uses BiPAP. It se ems there is family history of brain aneurysm in which his mom had it in her 40s as a result is . He denies any history of seizures. According to patient he is not able to move the left arm above gravity even upon seeing him but he is only able to move 2 fingers on the left hand is still has weakness over the left lower extremity. Denies any head trauma. Some other workup during his hospital visit consisted of: patient is afebrile Initial blood pressure is 159/108 but then the repeated one was 195/122. CBC with differential is unremarkable. serum glucose is 177. Otherwise rest of the the chemistry panel is unremarkable per the ED team patient the left upper and lower extremity was [address] head is reported as overall stable intracranial finding. No CT evidence of acute intracranial abnormality. I personally reviewed the CT and I agree with the report. CT angiography of the head and neck was reported as limited study with suboptimal alter oh contrast opacification. CT of the head and neck is reported as without clear evidence of large vessel occlusion, dissection or significant stenosis or any sizable aneurysm. I personally reviewed the CT angiography and I agree its very limited because of the poor contrast. no IV or thrombolytic since the patient is outside the window for an half hours and the risk outweighed the benefits Review of Systems The positive and negative as per HPI. Past Medical History Past Medical History: Hypertension, Pneumonia, Sleep Apnea/CPAP/BIPAP Additional Past Medical History / Comment(s): JOSEY with bipap, sinus problems, bronchitis. change in bowel pattern History of Any Multi-Drug Resistant Organisms: None Reported Past Surgical History: Orthopedic Surgery Additional Past Surgical History / Comment(s): right foot fracture with surgery. vasectomy Past Anesthesia/Blood Transfusion Reactions: No Reported Reaction, Motion Sickness Past Psychological History: ADD/ADHD Smoking Status: Never smoker Past Alcohol Use History: None Reported Past Drug Use History: None Reported - Past Family History Father Family Medical History: No Reported History Additional Family Medical History / Comment(s): Father is healthy and almost 70 yrs old. Mother Family Medical History: CVA/TIA Additional Family Medical History / Comment(s): Mother of a CVA at the age of 45yrs. Medications and Allergies Home Medications Medication Instructions Recorded Confirmed Type Citalopram Hydrobromide [CeleXA] 40 mg PO DAILY 02/10/24 02/10/24 History Losartan Potassium [Cozaar] 100 mg PO DAILY 02/10/24 02/10/24 History lamoTRIgine [LaMICtal] 50 mg PO HS 02/10/24 02/10/24 History sitaGLIPtin [Januvia] 100 mg PO HS 02/10/24 02/10/24 History Allergies Allergy/AdvReac Type Severity Reaction Status Date / Time azithromycin Allergy Rash/Hives Verified 02/10/24 11:08 [From Zithromax Z-Gato] Physical Examination - Vital Signs Vital Signs: Vital Signs Temp Pulse Resp BP Pulse Ox 02/10/24 12:34 71 18 181/115 96 02/10/24 09:38 98 F 72 18 159/108 96 Intake and Output 02/09/24 02/10/24 02/10/24 22:59 06:59 14:59 Other: Weight 170.097 kg GENERAL: The patient is lying in bed and is not in acute distress. NEUROLOGICAL: Higher mental function: The patient is awake, alert, oriented to self, place and time. Patient is following commands. No aphasia and no neglect. Cranial nerves: The pupils are round, equal and reactive to light and accommodation. Visual montes are full to confrontation throughout. Extraocular movement is intact no nystagmus is noted. Facial sensation is decrease over left V2 and V3 distribution to touch. The facial strength is normal throughout. Hearing is normal bilaterally to hand rub. Tongue is midline and moved [id number] without any difficulty. No dysarthria is noted. Shoulder shrug is normal bilaterally. Motor: The strength is left upper is moving the left arm/forearm side to side only and move left index finger and thumb above gravity. While the lower is 4- 4+. Then after I moved the left arm and leg all the sudden was 5/5 and walked out of bed. Normal tone and bulk. Cerebellum: Normal finger to nose bilaterally. Sensation: Initial decrease sensation to touch over the left upper extremity to touch. Otherwise normal. Reflexes (right/left): Somewhat limited because his cooperation and body habitus and was was 1+ Plantars are mute bilaterally. Results - Laboratory Findings CBC and BMP: 02/10/24 09:50 02/10/24 09:50 Abnormal Lab Findings: Abnormal Labs 02/10/24 09:50 Creatinine 0.65 L Glucose 177 H Assessment and Plan Assessment: this is a 53-year-old gentleman who presented emergency department because of left-sided weakness around 9 AM. today and last normal was 2 AM today.he also had numbness over the left side of the face and left upper extremity. he stated that the this Sunday he had a headache over the parietal region that is a throbbing and was sleeping throughout the day but that he was normal yesterday. Denies any fever or sick contacts. On examination he stated that he could not lift up the left arm above gravity and had weakness over the left lower but after maneuvering his arm all of a sudden strength was 5 out of 5 throughout and was walk-in. Transient left-sided weakness with numbness: On of differential is TIA. Cannot rule out functional since he had drastic improvement within seconds on examination (initially stated cannot lift the arm on left and I after i picked up his arm above gravity he regained full strength). Escalated hypertension diabetes mellitus Underlying history of hypertension Sleep apnea on BiPAP history of depression and anxiety on Lamictal morbid obesity Plan: patient was started on aspirin 325 daily and Plavix 75 mg daily by the ED team. Prior to this the patient was not on any antiplatelets. He was given a loading aspirin 325 and Plavix 300 mg. I started patient on Lipitor for milligram daily at bedtime for seconds a stroke prophylaxis pending the repeat CT angiography head and neck because of there is limitation on the initial one. I ordered MRI the brain, TSH, vitamin B12 and HbA1c. 2-D echo, lipid panel are ordered pending I ordered a routine EEG since the patient stated that the this Sunday he was sleeping throughout day to rule out any active underlying seizure or discharges. continue checks Cardiac monitoring. PT, OT and PHLEBOTOMIST LAB ASSISTANT are consulted We'll defer the rest of the medical measure the primary team For DVT prophylaxis I started the patient on subcu heparin 5000 units every 12 hours the plan was discussed with the patient, his and sister was at bedside. Also discussed the plan with the primary team. Thank you for the consultation. Dr. Rocha will resume neurology service tomorrow A.M. Time with Patient: Greater than 30
--- NOTE | 2024-02-10 13:46 | CT ---
EXAMINATION TYPE: CT angio head neck DATE OF EXAM: 02/10/2024 11:17 AM COMPARISON: CTA head and neck earlier same day at 10:00 AM.. CLINICAL INDICATION:Male, 53 years old with history of cva; PHH, stroke. Patient was rescanned per Irina Worthington due to suboptimal study previously TECHNIQUE: Axially acquired helical CT angiogram of the head and neck was obtained with contrast. Axi al images are supplemented with 3D reconstructions which [facility] NASCET criteria used. Contrast used: 65 mL of Isovue 370 with IV Contrast, Oral contrast used: None. CT DLP: 1288.5 mGycm, Automated exposure control for dose reduction was used. FINDINGS: There is much improved opacification of the arteries on this exam compared to prior. Aortic arch is patent without evidence of dissection and the 3 branch vessels appear patent. Small ca lcification within the left subclavian artery without significant narrowing. Right subclavian artery appears patent as seen. Origins of the vertebral arteries are patent without significant narrowing on the right. There is mild narrowing on the left due to the calcific plaque. Vertebrals thereafter pranav ear normally patent throughout the neck. They are essentially codominant. Bilateral common carotid arteries are patent. There is some mild eccentric soft plaque in the distal CCAs, right greater than left, without significant stenosis or plaque ulceration. Origins of ICAs pranav ear patent, and the ICAs are patent to the skull base. Proximal right ICA in the neck and distal left ICA in the neck appear rather tortuous. Intracranially, the petrous and cavernous segments of the ICAs appear patent without significant sten osis. Left MCA appears normally patent. There may be a tiny patent left posterior communicating arter y. A1 segment of the left MARY KAY is hypoplastic. Right MARY KAY is patent and there is cross fill from the an terior communicating artery allowing opacification of both ECAs more distally. The right MCA appears patent. There may be a tiny opacified right posterior communicating artery. Bilateral intracranial vertebral arteries are patent. Basilar is patent. Bifurcation is unremarkable without evidence of aneurysm. Proximal right CLOUD CONSULTANT is somewhat tortuous and patent. Visualized proximal left CLOUD CONSULTANT is patent. As previously suspected, there is no hemodynamically significant stenosis, dissection, large vessel o cclusion, or sizable aneurysm detected within the limits of CTA. Other previous exam findings are unchanged. IMPRESSION: * Repeat study shows much improved opacification of the arteries. * CTA neck appears patent without evidence of pseudoaneurysm, dissection, or significant stenosis of the carotid or vertebral arteries. * CTA head appears patent without evidence of large vessel occlusion, significant stenosis, or sizab le aneurysm in the limits of CTA.
[2024-02-10] MEDS: HEPARIN SODIUM,PORCINE 5,000 UNIT/ML 1 ML VIAL SQ SCH (14:29)
--- NOTE | 2024-02-10 15:24 | P.HPIM ---
History of Present Illness H&P Date: 02/10/24 Chief Complaint: Left-sided weakness 53-year-old male, history of hypertension, diabetes mellitus, sleep apnea, obesity, presenting to the emergency department with concern for left-sided weakness. Patient noticed symptoms when he woke up around 830 this morning. Patient was awake at 2 AM and walking around without any symptoms. Last known well was 2 AM. No speech problems or confusion. Patient this morning is having difficulty with walking. Patient also noticed left arm feels cold and weak and heavy. Initial blood pressure is 159/108 but then the repeated one was 195/122. CBC with differential is unremarkable. serum glucose is 177. Otherwise rest of the the chemistry panel is unremarkable CT head is reported as overall stable intracranial finding. No CT evidence of acute intracranial abnormality. CT angiography of the head and neck was reported as limited study with suboptimal alter oh contrast opacification. CT of the head and neck is reported as without clear evidence of large vessel occlusion, dissection or significant stenosis or any sizable aneurysm. No IV or thrombolytic recommended since the patient is outside the window for an half hours and the risk outweighed the benefits Review of Systems REVIEW OF SYSTEMS: CONSTITUTIONAL: No fever, no malaise, no fatigue. HEENT: No recent visual problems or hearing problems. Denied any sore throat. CARDIOVASCULAR: No chest pain, orthopnea, PND, no palpitations, no syncope. PULMONARY: No shortness of breath, no cough, no hemoptysis. GASTROINTESTINAL: No diarrhea, no nausea, no vomiting, no abdominal pain. NEUROLOGICAL: No headaches, no weakness, no numbness. HEMATOLOGICAL: Denies any bleeding or petechiae. GENITOURINARY: Denies any burning micturition, frequency, or urgency. MUSCULOSKELETAL/RHEUMATOLOGICAL: Denies any joint pain, swelling, or any muscle pain. ENDOCRINE: Denies any polyuria or polydipsia. The rest of the 14-point review of systems is negative. Past Medical History Past Medical History: Hypertension, Pneumonia, Sleep Apnea/CPAP/BIPAP Additional Past Medical History / Comment(s): JOSEY with bipap, sinus problems, bronchitis. change in bowel pattern History of Any Multi-Drug Resistant Organisms: None Reported Past Surgical History: Orthopedic Surgery Additional Past Surgical History / Comment(s): right foot fracture with surgery. vasectomy Past Anesthesia/Blood Transfusion Reactions: No Reported Reaction, Motion Sickness Past Psychological History: ADD/ADHD Smoking Status: Never smoker Past Alcohol Use History: None Reported Past Drug Use History: None Reported - Past Family History Father Family Medical History: No Reported History Additional Family Medical History / Comment(s): Father is healthy and almost 70 yrs old. Mother Family Medical History: CVA/TIA Additional Family Medical History / Comment(s): Mother of a CVA at the age of 45yrs. Medications and Allergies Home Medications Medication Instructions Recorded Confirmed Type Citalopram Hydrobromide [CeleXA] 40 mg PO DAILY 02/10/24 02/10/24 History Losartan Potassium [Cozaar] 100 mg PO DAILY 02/10/24 02/10/24 History lamoTRIgine [LaMICtal] 50 mg PO HS 02/10/24 02/10/24 History sitaGLIPtin [Januvia] 100 mg PO HS 02/10/24 02/10/24 History Allergies Allergy/AdvReac Type Severity Reaction Status Date / Time azithromycin Allergy Rash/Hives Verified 02/10/24 11:08 [From Zithromax Z-Gato] Physical Exam Vitals: Vital Signs Temp Pulse Resp BP Pulse Ox 02/10/24 09:38 98 F 72 18 159/108 96 Intake and Output 02/09/24 02/10/24 02/10/24 22:59 06:59 14:59 Other: Weight 170.097 kg General appearance: alert, in no apparent distress Head exam: Present: normocephalic Eye exam: Present: normal appearance, PERRL, EOMI Neck exam: Present: normal inspection Respiratory exam: Present: normal lung sounds bilaterally Cardiovascular Exam: Present: regular rate, normal rhythm GI/Abdominal exam: Present: soft. Absent: tenderness Extremities exam: Present: normal inspection Neurological exam: Present: alert, oriented X3, abnormal gait (difficulty trans ferring to the bed from wheelchair) Cranial nerves: EOM's Intact: Normal, Facial Sensation: Normal Sensory exam: Upper Extremity Light Touch: Normal, Lower Extremity Light Touch: Normal Motor strength exam: RUE: 5, LUE: 3, RLE: 5, LLE: 3 Skin exam: Present: normal color Results CBC & Chem 7: 02/10/24 09:50 02/10/24 09:50 Labs: Abnormal Lab Results - Last 24 Hours (Table) 02/10/24 Range/Units 09:50 Creatinine 0.65 L (0.66-1.25) mg/dL Glucose 177 H (74-99) mg/dL Assessment and Plan Assessment: 1. Transient left-sided weakness with numbness: Possible TIA CT head is reported as overall stable intracranial finding. No CT evidence of acute intracranial abnormality. CT angiography of the head and neck was reported as limited study with suboptimal alter oh contrast opacification. CT of the head and neck is reported as without clear evidence of large vessel occlusion, dissection or significant stenosis or any sizable aneurysm. patient was started on aspirin 325 daily and Plavix 75 mg daily per neurology recommendations. -- Patient was given a loading aspirin 325 and Plavix 300 mg. Patient has been placed on Lipitor per neurology recommendations pending the repeat CT angiography head and neck because of there is limitation on the initial one. -- ordered MRI the brain, TSH, vitamin B12 and HbA1c. 2-D echo, lipid panel are ordered pending -- ordered a routine EEG since the patient stated that the this Sunday he was sleeping throughout day to rule out any active underlying seizure or discharges. continue checks Cardiac monitoring. PT, OT and COKE WORKER are consulted 2. Hypertensive urgency; will allow permissive hypertension for 24 hours; use IV hydralazine if blood pressures greater than 220/110 -Patient takes losartan 100 mg daily at home which could be resumed in next 24 hours 3. Diabetes mellitus type 2; patient takes Januvia 100 mg nightly; can be resumed at time of discharge; we will monitor Accu-Cheks before every meal and at bedtime with insulin sliding scale 4. Obstructive sleep apnea 5. Morbid obesity; counseling done on need for weight reduction 6. Depression/anxiety; continue with home dose of Celexa and Lamictal DVT prophylaxis; SCDs/subcu heparin
[2024-02-10] MEDS ORDERED: hydrALAZINE HCL 20 MG/ML 1 ML VIAL IVP PRN (16:31)
[2024-02-10] MEDS: ATORVASTATIN 40 MG TAB PO SCH (20:43)
[2024-02-10] MEDS: ACETAMINOPHEN TAB 500 MG TAB PO STA (20:43)
[2024-02-11 00:30] VITALS: RESP 18
[2024-02-11 08:45] LABS: Basophils # (A) 0.1 k/uL (0-0.2); Basophils % (A) 1 %; Eosinophils # (A) 0.1 k/uL (0-0.7); Eosinophils % (A) 1 %; HCT 47.4 % (39.0-53.0); HGB 15.3 gm/dL (13.0-17.5); Lymphocytes # (A) 2.1 k/uL (1.0-4.8); Lymphocytes % (A) 25 %; MCHC 32.3 g/dL (31.0-37.0); MCV 92.7 fL (80.0-100.0); Mean Platelet Volume 7.5; Monocytes # (A) 0.6 k/uL (0-1.0); Monocytes % (A) 7 %; Neutrophils # (A) 5.5 k/uL (1.3-7.7); Neutrophils % (A) 66 %; Platelet Count 257 k/uL (150-450); RBC 5.11 m/uL (4.30-5.90); RDW 13.5 % (11.5-15.5); WBC 8.4 k/uL (3.8-10.6)
[2024-02-11] MEDS: CLOPIDOGREL 75 MG TAB PO SCH (08:47)
[2024-02-11] MEDS: ASPIRIN 325 MG TAB PO SCH (08:47)
[2024-02-11 08:59] LABS: African American GFR (CKD) >90 (>60 ml/min/1.73 sqM); Anion Gap 7 mmol/L; Blood Urea Nitrogen 14 mg/dL (9-20); Calcium 9.4 mg/dL (8.4-10.2); Carbon Dioxide 27 mmol/L (22-30); Chloride 104 mmol/L (98-107); Glucose 157 mg/dL (74-99); Non-African American GFR(CKD) >90 (>60 ml/min/1.73 sqM); Potassium 4.7 mmol/L (3.5-5.1); Sodium 138 mmol/L (137-145)
[2024-02-11 14:58] LABS: Chol/HDL Ratio 3.89 Ratio
[2024-02-11 16:41] VITALS: BP 139/95; PULSE 80; TEMP 98.7
--- NOTE | 2024-02-11 19:52 | CA ---
Transthoracic Echo Report Name: Jm Hi Age: 53 Gender: M : 1970 Exam Date: 02/11/2024 14:42 Exam Location: [facility] Ht (in): 72 Wt (lb): 375 Ordering Physician: Ramone Worthington DO Attending/Referring Phys: Sidewalk Inspector Deanna Jo RDCS Procedure CPT: Indications: Thrombus Cardiac Hx: Technical Quality: Technically difficult study Contrast 1: Definity Total Dose (mL): 2 Contrast 2: Total Dose (mL): MEASUREMENTS (Male / Female) Normal Values 2D ECHO LV Diastolic Diameter PLAX 5.6 cm 4.2 - 5.9 / 3.9 - 5.3 cm LV Systolic Diameter PLAX 3.6 cm IVS Diastolic Thickness 1.4 cm 0.6 - 1.0 / 0.6 - 0.9 cm LVPW Diastolic Thickness 1.3 cm 0.6 - 1.0 / 0.6 - 0.9 cm LV Relative Wall Thickness 0.5 RV Internal Dim ED PLAX 2.8 cm LA Systolic Diameter LX 3.7 cm 3.0 - 4.0 / 2.7 - 3.8 cm LA Volume 75.7 cm??? 18 - 58 / 22 - 52 cm??? LA Volume Index 25.0 cm???/m??? 16 - 28 cm???/m??? M-MODE Aortic Root Diameter MM 3.9 cm LA Systolic Diameter MM 5.0 cm LA Ao Ratio MM 1.3 AV Cusp Separation MM 2.6 cm DOPPLER AV Peak Velocity 153.4 cm/s AV Peak Gradient 9.4 mmHg MV Area PHT 2.4 cm??? Mitral E Point Velocity 58.9 cm/s Mitral A Point Velocity 69.6 cm/s Mitral E to A Ratio 0.8 MV Deceleration Time 310.1 ms TR Peak Velocity 223.4 cm/s TR Peak Gradient 20.0 mmHg Right Ventricular Systolic Press 24.6 mmHg FINDINGS Left Ventricle Left ventricular ejection fraction is estimated at 50-55%. Mildly increased septal wall thickness. No obvious regional wall motion abnormalities. Left ventricular cavity size normal. No obvious left ventricular thrombus. Right Ventricle Right ventricle not well visualized. Right ventricular systolic pressure within normal limits. Right Atrium Right atrium not well visualized. Left Atrium Moderately increased left atrial volume. Mildly increased left atrial area. Mitral Valve Structurally normal mitral valve. Mitral valve not well visualized. Aortic Valve Aortic valve not well visualized. Tricuspid Valve Structurally normal tricuspid valve. Trace to mild tricuspid regurgitation. Pulmonic Valve Pulmonic valve not well visualized. Pericardium No pericardial or pleural effusion. Aorta Mildly dilated aortic annulus. CONCLUSIONS Technically difficult study. Definity was used Normal LV systolic function Poorly visualized intracardiac valves Mildly dilated aortic annulus Previewed by: Dr. Tru Gomes MD (Electronically Signed) Final Date: 11 February 2024 19:52
--- NOTE | 2024-02-11 20:32 | EEG ---
ELECTROENCEPHALOGRAM REPORT PREAMBLE: This is a 53-year-old male with confusion, rule out seizure. CURRENT MEDICATIONS: 1. Aspirin. 2. Lipitor. 3. Plavix. 4. Heparin. EEG FINDINGS: This is a 21-channel digital EEG recorded with video component, utilizing 10/20 international system with referential and bipolar montages. Background consists of well-developed, moderately well regulated, mixed frequencies of 9 to 10 hertz low amplitude alpha activity seen in posterior head region. Background is reactive to eye opening and closing. The patient was drowsy during most of the study with appearance of bilaterally symmetric theta frequency rhythm. Deeper stages of sleep were not seen. No focal or generalized epileptiform activity was seen. IMPRESSION: This is a normal awake and drowsy EEG. No focal, lateralized, or epileptiform activity was seen. MMODL / IJN: [id number] /
== END 2024-02-11 19:53 | disposition home or self-care (01) | DRG 69 ==
LOC: EC 09:20 → 3SCARD 11:48
PROVIDERS: ADMIT Family Medicine; ATTEND Family Medicine
DX: G45.9 Transient cerebral ischemic attack, unspecified (principal); G81.94 Hemiplegia, unspecified affecting left nondominant side; Z68.43 Body mass index [BMI] 50.0-59.9, adult; F90.9 Attention-deficit hyperactivity disorder, unspecified type; G47.33 Obstructive sleep apnea (adult) (pediatric); I10 Essential (primary) hypertension; I16.0 Hypertensive urgency; F41.9 Anxiety disorder, unspecified; E11.9 Type 2 diabetes mellitus without complications; F32.A Depression, unspecified; E66.01 Morbid (severe) obesity due to excess calories; Z71.3 Dietary counseling and surveillance; Z79.02 Long term (current) use of antithrombotics/antiplatelets; Z79.82 Long term (current) use of aspirin; Z79.84 Long term (current) use of oral hypoglycemic drugs; Z79.899 Other long term (current) drug therapy; Z82.3 Family history of stroke; Z88.1 Allergy status to other antibiotic agents
CPT/HCPCS: 36415; 70450; 70496; 70498; 71046; 80048; 80053; 80061; 82550; 82607; 83036; 84443; 85025; 85610; 85730; 93005; 93306; 95816; 96360; 96361; 96372; 99291

== ENCOUNTER 2024-02-28 10:24 | Emergency (ER) | payer BC ==
--- NOTE | 2024-02-28 10:29 | ED ---
Wound/Laceration HPI - General Chief Complaint: Wound/Laceration Stated Complaint: L hand lac on blood thinners Time Seen by Provider: 02/28/24 10:29 Source: patient, RN notes reviewed Mode of arrival: ambulatory Limitations: no limitations - History of Present Illness Initial Comments: This is a 53-year-old male who presents the emergency department chief complaint of a laceration to his left proximal thumb. He states that he was at home using a knife when he tried to cut off the tip of a tube of glue when he slipped cutting his thumb. Patient endorses mobility of the thumb in the affected hand. Denies paresthesia. States he is on Plavix due to history of recent stroke. No other acute complaints at this time. - Related Data Home Medications Medication Instructions Recorded Confirmed Citalopram Hydrobromide [CeleXA] 40 mg PO DAILY 02/10/24 02/10/24 Losartan Potassium [Cozaar] 100 mg PO DAILY 02/10/24 02/10/24 lamoTRIgine [LaMICtal] 50 mg PO HS 02/10/24 02/10/24 sitaGLIPtin [Januvia] 100 mg PO HS 02/10/24 02/10/24 Previous Rx's Medication Instructions Recorded Aspirin 325 mg PO DAILY #30 tab 02/11/24 Atorvastatin [Lipitor] 40 mg PO HS #30 tab 02/11/24 Clopidogrel [Plavix] 75 mg PO DAILY #30 tab 02/11/24 Cephalexin [Keflex] 500 mg PO Q6HR #40 cap 02/28/24 Allergies Allergy/AdvReac Type Severity Reaction Status Date / Time azithromycin Allergy Rash/Hives Verified 02/28/24 10:27 [From Zithromax Z-Gato] Review of Systems ROS Statement: Those systems with pertinent positive or pertinent negative responses have been documented in the HPI. ROS Other: All systems not noted in ROS Statement are negative. Past Medical History Past Medical History: CVA/TIA, Hypertension, Pneumonia, Sleep Apnea/CPAP/BIPAP Additional Past Medical History / Comment(s): JOSEY with bipap, sinus problems, bronchitis. change in bowel pattern History of Any Multi-Drug Resistant Organisms: None Reported Past Surgical History: Orthopedic Surgery Additional Past Surgical History / Comment(s): right foot fracture with surgery. vasectomy Past Anesthesia/Blood Transfusion Reactions: No Reported Reaction, Motion Sickness Past Psychological History: ADD/ADHD Smoking Status: Never smoker Past Alcohol Use History: None Reported Past Drug Use History: None Reported - Past Family History Father Family Medical History: No Reported History Additional Family Medical History / Comment(s): Father is healthy and almost 70 yrs old. Mother Family Medical History: CVA/TIA Additional Family Medical History / Comment(s): Mother of a CVA at the age of 45yrs. General Exam Limitations: no limitations General appearance: alert, in no apparent distress Head exam: Present: atraumatic, normocephalic, normal inspection Eye exam: Present: normal appearance, PERRL, EOMI. Absent: scleral icterus, conjunctival injection, periorbital swelling ENT exam: Present: normal exam, mucous membranes moist Neck exam: Present: normal inspection. Absent: tenderness, meningismus, lymphadenopathy Respiratory exam: Present: normal lung sounds bilaterally. Absent: respiratory distress, wheezes, rales, rhonchi, stridor Cardiovascular Exam: Present: regular rate, normal rhythm, normal heart sounds. Absent: systolic murmur, diastolic murmur, rubs, gallop, clicks GI/Abdominal exam: Present: soft, normal bowel sounds. Absent: distended, tenderness, guarding, rebound, rigid Left Hand Wrist exam: Present: laceration (2 and half centimeter laceration over the proximal first digit.) Back exam: Present: normal inspection Neurological exam: Present: alert, oriented X3, CN II-XII intact Psychiatric exam: Present: normal affect, normal mood Skin exam: Present: warm, dry, intact, normal color. Absent: rash Course Vital Signs 02/28/24 02/28/24 10:25 12:15 Temperature 97.9 F 97.9 F Pulse Rate 83 80 Respiratory 20 18 Rate Blood Pressure 214/110 180/91 O2 Sat by Pulse 99 99 Oximetry Procedures - Laceration Laceration #1 Consent Obtained: verbal consent Indication: laceration Site: hand Size (cm): 2 Description: linear Depth: simple, single layer Sedation/Analgesia: none Anesthetic Used: lidocaine 1% Anesthesia Technique: local infiltration Pre-repair: wound explored, irrigated extensively Type of Sutures: nylon Size of Sutures: 4-0 Number of Sutures: 4 Technique: simple, interrupted Patient Tolerated Procedure: well, no complications Medical Decision Making - Medical Decision Making Was pt. sent in by a medical professional or institution (ELISE Gamboa, HUMAN RESOURCES REPRESENTATIVE, urgent care, hospital, or shelter...) When possible be specific @ -No Did you speak to anyone other than the patient for history (EMS, parent, family, police, friend...)? What history was obtained from this source @ -No Did you review nursing and triage notes (agree or disagree)? Why? @ -I reviewed and agree with nursing and triage notes Were old charts reviewed (outside hosp., previous admission, EMS record, old EKG, old radiological studies, urgent care reports/EKG's, shelter records)? Report findings @ -No old charts were reviewed Differential Diagnosis (chest pain, altered mental status, abdominal pain women, abdominal pain men, vaginal bleeding, weakness, fever, dyspnea, syncope, headache, dizziness, GI bleed, back pain, seizure, CVA, palpatations, mental health, musculoskeletal)? @ -Laceration EKG interpreted by me (3pts min.). @ -None X-rays interpreted by me (1pt min.). @ -None done CT interpreted by me (1pt min.). @ -None done U/S interpreted by me (1pt. min.). @ -None done What testing was considered but not performed or refused? (CT, X-rays, U/S, labs)? Why? @ -None What meds were considered but not given or refused? Why? @ -None Did you discuss the management of the patient with other professionals (professionals i.e. ELISE Gamboa, HUMAN RESOURCES REPRESENTATIVE, lab, RT, psych nurse, social work faculty member, arts and sciences dean, teacher, medical officer, caseworker)? Give summary @ -No Was smoking cessation discussed for >3mins.? @ -No Was critical care preformed (if so, how long)? @ -No Were there social determinants of health that impacted care today? How? (Homelessness, low income, unemployed, alcoholism, drug addiction, transportation, low edu. Level, literacy, decrease access to med. care, longterm, rehab)? @ -No Was there de-escalation of care discussed even if they declined (Discuss DNR or withdrawal of care, Hospice)? DNR status @ -No What co-morbidities impacted this encounter? (DM, HTN, Smoking, COPD, CAD, Cancer, CVA, ARF, Chemo, Hep., AIDS, mental health diagnosis, sleep apnea, morbid obesity)? @ -None Was patient admitted / discharged? Hospital course, mention meds given and route, prescriptions, significant lab abnormalities, going to OR and other pertinent info. @ -53-year-old male with a laceration. On examination patient is noted to have a 2 cm laceration over his left proximal thumb. The laceration has mild bleeding. Patient's last tetanus vaccine was 2 years ago. Area was thoroughly cleansed with sterile water. Area was also irrigated with 1% lidocaine and topical let was applied. 4 simple interrupted sutures were placed. Recommend that patient follows up in the emergency department with his primary care provider in the next 10 days for suture removal. Suture care discussed at bedside. All questions answered. He will be discharged home on antibiotics due to potential infection and high mobility of fingers. Patient is agreement with this. Stable for discharge. Discussed with Dr. Cortez Undiagnosed new problem with uncertain prognosis? @ -No Drug Therapy requiring intensive monitoring for toxicity (Heparin, Nitro, Insulin, Cardizem)? @ -No Were any procedures done? @ -Wound irrigation, simple suture placement with 4-0 nylon, 4 sutures Diagnosis/symptom? @ -Laceration, suture repair Acute, or Chronic, or Acute on Chronic? @ -Acute Uncomplicated (without systemic symptoms) or Complicated (systemic symptoms)? @ -uncomplicated Side effects of treatment? @ -No Exacerbation, Progression, or Severe Exacerbation? @ -No Poses a threat to life or bodily function? How? (Chest pain, USA, OR, pneumonia, PE, COPD, DKA, ARF, appy, cholecystitis, CVA, Diverticulitis, Homicidal, Suicidal, threat to staff... and all critical care pts) @ -No Disposition Clinical Impression: Laceration Narrative: Please return to the Emergency Department if symptoms worsen or any other concerns. Return to the emergency department or follow-up with your primary care provider in the next 7 to 10 days for suture removal. Complete full course of antibiotics. Disposition: HOME SELF-CARE Condition: Good Instructions (If sedation given, give patient instructions): Care For Your Stitches (DC) Prescriptions: Cephalexin [Keflex] 500 mg PO Q6HR #40 cap Is patient prescribed a controlled substance at d/c from ED?: No Referrals: Jacky,Ruba, DO [Primary Care Provider] - 1-2 days Time of Disposition: 11:58
[2024-02-28] MEDS: LIDOCAINE/EPINEPHR/TETRACAINE 5 ML BOTTLE TOPICAL ONE (10:52)
[2024-02-28 11:10] VITALS: TEMP 97.9
[2024-02-28] MEDS: LIDOCAINE 1% INJ 10MG/ML (20 ML MDV) SQ ONE (11:28)
[2024-02-28 13:08] VITALS: BP 180/91; PULSE 80; RESP 18
== END 2024-02-28 12:17 | disposition home or self-care (01) ==
LOC: EC 10:24
DX: S61.012A Laceration without foreign body of left thumb without damage to nail, initial encounter (principal); Z88.1 Allergy status to other antibiotic agents; W26.0XXA Contact with knife, initial encounter; Y92.009 Unspecified place in unspecified non-institutional (private) residence as the place of occurrence of the external cause
CPT/HCPCS: 12001; 99282; J2001

== ENCOUNTER → 2024-04-01 | Outpatient (CLI) | payer BC ==
--- NOTE | 2024-04-01 13:09 | CA ---
Exercise Stress Test Report Name: Jm Hi Exam Date: 04/01/2024 09:35 Exam Location: [facility] Ht (in): 72 Wt (lb): 362 BSA: 2.74 Ordering Phys: Kiersten Bernard DO Referring Phys: Nena Gonzáles PAC Technologist: Vimal Acosta Age: 53 Gender: M : 1970 Procedure CPT: Indications: I20.89 OTHER FORMS OF ANGIN I10 Hypertension I63.9 ICD-10 Codes: Patient History: CP, MISTY, PALP, NUMBNESS FACE/NECK, HTN, DM, CVA, CHOL Medications: LOSARTAN,,,,,, HZTZ,,,,,, CLOPIDOGREL,,,,,, CITALOPRAM,,,,,, ATORVASTATIN,,,,,, LAMOTRIGINE,,,,,, JANUVIA,,,,, Meds past 24 hrs: Pretest Chest Pain: STRESS TEST Hay Protocol Exercise Duration (min:sec): 07:[address] Depressions (mm): Angina Score: Douglas Score: Resting HR (bpm): 70 Peak HR (bpm): 152 Resting BP (mmHg): 146 / 82 Peak BP (mmHg): 201 / 101 MPHR: 167 Target HR: 142 % MPHR: 91 METS: 8.3 Total Dose: Peak Dose: Atropine: Double Product: 18263 BP Response: Stress Termination: MAX EXERTION/TARGET HR Stress Symptoms: CHEST PRESSURE Stress Summary: ECG ANALYSIS Resting ECG: Stress ECG: CONCLUSIONS Good exercise tolerance Normal electrocardiogram stress testing Dr. Tru Gomes MD (Electronically Signed) Final Date: 01 April 2024 13:08
== END | disposition home or self-care (01) ==
LOC: RADNMMAIN 07:46
PROVIDERS: ATTEND Family Medicine
DX: I20.89 Other forms of angina pectoris (principal); I10 Essential (primary) hypertension; I63.9 Cerebral infarction, unspecified
CPT/HCPCS: 93017; 78452; A9500